=== PATIENT | female | born 1975 | race Caucasian/White ===

== ENCOUNTER 2019-12-11 08:52 | Outpatient (CLI) | payer BC, SELFPAY ==
--- NOTE | 2019-12-11 | US_ITS ---
WS: [id number] TRANSABDOMINAL PELVIC AND TRANSVAGINAL PELVIC ULTRASOUND HISTORY: HEMORRHAGIA, ENLARGED UTERUS COMPARISON: None available. Uterus: 10.0 cm x 9.4 cm x 6.3 cm. Uterus is moderately enlarged and anteverted. Mild heterogeneity i n the myometrium. In the anterior myometrium multiple fibroids are identified. Largest fibroid measur es 5.5 x 5.6 x 4.6 cm. This is partially exophytic from the anterior myometrium. Endometrium: 1.0 cm. Normal homogeneity. Right ovary: Not visualized. No adnexal mass seen. Left ovary: 3.3 cm x 2.7 cm x 2.5 cm. LEFT ovarian cyst contains and daughter cyst. No free fluid. US/US pelvic with transvaginal IMPRESSION: 1. Moderately enlarged uterus. 2. Several fibroids along the anterior myometrium with the largest partially e xophytic measuring 5.5 x 5.6 x 4.6 cm. 3. RIGHT ovary is not identified.
== END 2019-12-11 08:53 | disposition home or self-care (01) ==
LOC: RAD 08:59
PROVIDERS: PCP Nurse Practitioner Women's Health; Visit Provider Nurse Practitioner Women's Health
DX: N85.2 Hypertrophy of uterus (principal); R58 Hemorrhage, not elsewhere classified; D25.9 Leiomyoma of uterus, unspecified
CPT/HCPCS: 76830; 76856

== ENCOUNTER → 2019-12-25 09:30 | Outpatient (BNVA) | payer BC, SELFPAY | PROVIDERS: PCP Nurse Practitioner Women's Health; Visit Provider Obstetrics & Gynecology | DX: N93.9 Abnormal uterine and vaginal bleeding, unspecified (principal) | CPT/HCPCS: 84146; 84443; 85025 ==

== ENCOUNTER → 2020-01-07 12:04 | Outpatient (BNVA) | payer BC, SELFPAY | PROVIDERS: PCP Nurse Practitioner Women's Health; Visit Provider Obstetrics & Gynecology | DX: N93.9 Abnormal uterine and vaginal bleeding, unspecified (principal) | CPT/HCPCS: 81025 ==

== ENCOUNTER 2020-01-30 10:21 | Observation (INO) | payer BC, SELFPAY ==
[2020-01-29 11:07] VITALS: BMI 27.4
[2020-01-30] VITALS (21 sets, daily range): BP systolic 98–132; BP diastolic 61–91; PULSE 65–91; RESP 16–21; TEMP 36.6–37.1; O2SAT 68–100
--- NOTE | 2020-01-30 06:31 | ANES.PREANE2 ---
Pre-Anesthetic Assessment Pre-Anesthetic Assessment: Height/Weight: Height 1.63 m Weight 72.575 kg Temp Pulse Resp BP Pulse Ox 98.1 F 89 18 128/91 100 01/30/20 06:06 01/30/20 06:06 01/30/20 06:06 01/30/20 06:06 01/30/20 06:06 Preop Diagnosis: Abnormal uterine bleeding, fibroid uterus Proposed Procedure: Operation Date: 01/30/20 07:00 Proposed Procedures p Laparoscopic Assist Vaginal Hystectomy LAVH/possible total abd hysterectomy/bilat salpingectomy possible oophorectomy 52482 12045 D25.9 N93.9(Not Applicable) - Jena Basurto MD Familial anesthetic complications: PONV Was Beta [place] taken within 24 hours: N/A Last intake: Intake Last Liquid Date 01/29/20 Last Liquid Time 23:00 Last Solid Date 02/05/20 Last Solid Time 19:30 Social: Social History: Alcohol and No tobacco Comment: glass of wine a day Exam: Pre-Anes Outpt Exam: alert, oriented x 3, clear to auscultation bilaterally and regular rate & rhythm Airway: Cervical ROM: WNL MP: 1 Dentition: Full Pulmonary: Pulmonary: None reported CV/HEM: CV/HEM: None reported : : None reported Hepatic: Hepatic: None reported GI: GI: None reported Metabolic: Metabolic: None reported Musc/skel: Musc/skel: Lower Back Pain Comments: hip reconstructions Neuropsych: Neuropsych: None reported Anesthetic Plan: ASA status: 1 Anesthesia: General Risk of > 500 ml blood loss (7ml/kg in children): No PFSH Anesthesia PFSH: Medical History No pertinent past medical history Patient denies history of: hypertension, hypercholesterolemia, diabetes, asthma, lung, liver, kindey or heart or thyroid disorders, DVT/PE, bleeding or clotting disorders. PCP: None Surgical History S/P appendectomy Laparoscopic procedure in 2013 in [place] S/P shoulder surgery Arthroscopic left shoulder surgery for torn tendon. 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 Status post laparoscopy Diagnostic laparoscopy performed in 2003-patient states that uterus and ovaries were normal at that time. 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 Moved to [place] in [place] in June 2019. Data Anesthesia Cardiac Studies: No Data to Display
[2020-01-30] MEDS: sodium chloride 0.9% 1,000 ML 30 ML IV (06:32)
[2020-01-30] MEDS: scopolamine 1.5 Patch 1 PATCH TRANSDERMA (06:34)
--- NOTE | 2020-01-30 06:56 | P.HPUD_ITS ---
Surgery/Procedure H&P Update DATE OF PROCEDURE: January 30, 2020 DATE H&P PERFORMED: 01/14/20 H&P UPDATE INFORMATION: I have reviewed H&P completed within last 30 days, I have examined patient prior to procedure, No changes to prior documentation and H&P is in [facility] on date indicated PREOP DIAGNOSIS: Abnormal uterine bleeding, fibroid uterus PRIMARY INDICATION FOR PROCEDURE: fibroids, AUB PLANNED PROCEDURE: Operation Date: 01/30/20 07:00 Proposed Procedures p Laparoscopic Assist Vaginal Hystectomy LAVH/possible total abd hy sterectomy/bilat salpingectomy possible oophorectomy [id number] D25.9 N93.9(Not Applicable) - Jena Basurto MD
[2020-01-30 07:02] LABS: OR HCG Qualitative Urine Negative (Negative)
[2020-01-30] MEDS: vasopressin 20 unit/mL INJ INJECTION (08:30)
--- NOTE | 2020-01-30 10:30 | PM.OP ---
Operative Report Date of procedure: January 30, 2020 OPERATIVE REPORT Date of surgery: 01/30/2020 Date of dictation: 01/30/2020 Preoperative diagnosis: 45-year-old 2 para 2 with fibroid uterus; pelvic pain; abnormal uterine bleeding Postoperative diagnosis/findings: 10-week size anteverted uterus, mobile, on laparoscopy no intra-abdominal lesions, normal tubes and ovaries bilaterally, enlarged fibroid uterus-single 5 to 7 cm fibroid in the anterior and left side. On cystoscopy no lesions suture or defects identified, bilateral ureteral jets x3 noted. Procedure done: Laparoscopic assisted vaginal hysterectomy, bilateral salpingectomy, cystoscopy Specimens removed/disposition of specimens: Fibroid uterus, bilateral fallopian tubes with the right tube tagged. Surgeon: Dr. Jena Jackson resident programs assistant: Sofia Hooker Anesthesia: General endotracheal tube anesthesia Estimated blood loss: 200 ml Intravenous fluids: 1500 mL of LR Urine output: 300 mL of blue-tinged urine at the end of procedure. Medications: As per anesthesia records Complications: None, patient was extubated and brought to the recovery room in stable condition. PROCEDURE: After consents were obtained, she was taken to the operating room where she was placed under general endotracheal tube anesthesia without any difficulty. She was placed supine on the table in lithotomy position. Her legs were placed in stirrups and care was taken to avoid pressure points. Exam under anesthesia revealed findings revealed above. She was then prepped and draped in usual sterile fashion. Weighted speculum and anterior wall retractors were placed in the vagina, cervix visualized and grasped with a tenaculum. ZUMI uterine manipulator was placed into the uterus without any difficulty. Samuels Catheter was placed, instruments were removed from the vagina and the legs were lowered. Attention was turned towards the abdomen where half percent Marcaine with epinephrine was injected in to her umbilicus. A 10 mm skin incision was made and a 10 mm port was placed through the umbilicus using an open technique. The fascia was visualized tented and entered sharply. Peritoneum was entered bluntly. No adhesions were noted around incision. Amor trocar was placed and attached to the fascia. Once intra-abdominal entry was confirmed gas was turned on and intra-abdominal opening pressure was 2. The abdomen is insufflated until the pressure was 13. Survey of the abdomen findings noted above. No other gross abnormality were identified. Two 5 mm trocar was placed into the right and left lower quadrant under direct visualization after injecting Marcaine. A 5 mm Voyant was introduced into the abdomen and the left ovarian ligament was clamped, cauterized x3 and then cut. No bleeding was noted. The LigaSure was used clamp cauterize and then cut the broad ligament under the fallopian tube and proceeding inferiorly just lateral to the uterus. The round ligament was also clamped, cauterized and cut. In this way the left fallopian tube, ovary and left side of the uterus was from the parametria. This was done with the assistance of the laparoscopic tenaculum to hold the fibroid. This was continued to the level just above the cervix. The same procedure was repeated on the right side and using the LigaSure -the right ovarian ligament, fallopian tube and round ligament were grasped, cauterized and cut. Good hemostasis was noted.The right-side of the uterus was thus freed from the parametria in a similar fashion. The ureters were visualized bilaterally well away from site of surgery. Next the anterior bladder flap was created and the bladder was pushed down. The uterine artery on both sides were visualized, clamped and cauterized. Survey of surgery sites showed hemostasis bilaterally. At this point all instruments were taken out of the abdomen, gas was turned off, abdomen was covered with a sterile drape and attention was turned towards the vagina. Patient's legs were raised, weighted speculum placed and cervix was grasped on the anterior and posterior lips with single-toothed tenaculum. 4 Units of Pitressin diluted in 10 mL of saline was injected around the cervix for hydrodissection on all sides. A scalpel was used to make an incision starting posteriorly and then extending anteriorly around the cervix. Santo scissors was then used to separate the overlying tissue from the cervix. The overlying tissue was also pushed back bluntly using a 4 x 4 gauze. Attention was turned posteriorly where pickups with teeth and Metzenbaum scissors was used to grasp the peritoneum and peritoneal cavity was entered. This peritoneal incision was extended laterally using the Metzenbaum scissors. A long weighted speculum was placed intraperitoneally thus protecting the rectum. [place] clamps were used first on the right and then the left to clamp and then cut the paracervical tissue. Then we clamped, cut and sutured both right and left uterosacral ligaments with a Raissa clamp. This process was repeated again proceeding up the cervix. The bladder was held up, peritoneum was identified and intraperitoneal entry anteriorly was made. A vaginal retractor was placed into the peritoneum thus protecting the bladder from site of surgery. Care was taken to stay medial and to avoid the bladder. The next bite that was placed clamped and then cut the already cauterized uterine artery on the right and then on the left side. These pedicles were were tied and the stitches were cut. Good hemostasis was achieved. With this, the uterus, bilateral tubes was freed, taken out and sent to pathology. The pedicles in the pelvis was visualized and good hemostasis was noted. The posterior vaginal cuff was noted to be bleeding and was oversewn , attaching the peritoneum to the vaginal cuff with 0 Vicryl in a continuous interlocking fashion. Good hemostasis was achieved. Cystoscopy was performed with a 70? cystoscope and bilateral ureteral jets were visualized x 3 as well as no suture , lesion or defect was noted in the bladder wall or urethra. Cystoscope was removed, bladder drained and Samuels catheter was replaced. The angles of the vaginal cuff were grasped with Allis clamps and the angles were held in place. 0 Vicryl was used to close the vaginal cuff in a horizontal fashion using interrupted [id number] sutures. The vaginal cuff was closed and no defects were noted attention was turned to the Vicryl sutures holding the uterosacral ligaments. The sutures were right and left uterosacral ligaments were tied together thus suspending the apex of the vagina. Good support was noted. Attention was turned towards the abdomen at this time and patient's legs were lowered. Abdomen was insufflated to a pressure of 13 and the camera was placed in the abdomen. Sites of surgery were visualized and were noted to be hemostatic. The vaginal cuff was intact and no bowel or omentum was noted to be involved with the vaginal cuff suture line. Surgicel was placed over the vaginal cuff. Good hemostasis was noted. All instruments removed from the abdomen and the abdomen was desufflated. Trochars were removed with the blunt probe in place. The fascia on the umbilicus was closed with 0 Vicryl on a UR needle and good approximation was obtained. The skin incision on all 3 ports was closed with 4-0 Monocryl in a subcuticular fashion. Good reapproximation and hemostasis was noted. Marcaine was injected on the port sites. The incisions were dressed with Steri-Strips, Telfa and Tegaderm. 1 inch vaginal packing with lubrication was placed into the vagina. A Samuels catheter was kept in place. The patient was extubated without any difficulty and taken to the recovery room in a stable condition. Pre-op Diagnosis: Abnormal uterine bleeding, fibroid uterus
[2020-01-30] MEDS: meperidine 50 mg/mL INJ 12.5 MG IVP ×2 (10:37→10:42)
[2020-01-30] MEDS: HYDROcodone-acetaminophen 5-325 mg Tablet PO (11:47)
[2020-01-30] MEDS: dextrose 5%-lactated ringers 1,000 ML 125 ML IV ×2 (13:01→21:43)
[2020-01-30] MEDS: ketorolac 30 mg/mL INJ 15 MG IVP (14:37)
--- NOTE | 2020-01-30 15:43 | PC.NURSE ---
Patient assisted to the chair. Patient stated she felt dizzy for a second while scooting across the bed to dangle her legs off the bed, but stated it resolved quickly. Patient denied feeling any dizziness once standing at bedside with assistance. Patient ambulated to the chair without any weakness, lightheadedness, or further dizziness.
--- NOTE | 2020-01-31 00:46 | PC.NURSE ---
vaginal packing was removed at this time. Pt. tolerated procedure well.
[2020-01-31] MEDS: HYDROcodone-acetaminophen 5-325 mg Tablet PO ×3 (01:13→12:16)
[2020-01-31 05:24] LABS: Hematocrit 32.9 % (37.0-47.0); Hemoglobin 10.7 g/dL (11.5-15.3); Mean Corpuscular HGB Conc 32.5 g/dL (30.0-36.0); Mean Corpuscular Hemoglobin 31.8 pg (28.0-34.0); Mean Corpuscular Volume 97.9 fL (81-99); Mean Platelet Volume 10.1 fL (7.4-10.4); Platelet Count 166 10^3/cmm (130-400); Red Blood Count 3.36 10^6/uL (4.1-5.3); Red Cell Distribution Width 12.8 % (12.1-15.1); White Blood Count 11.1 10^3/uL (4.0-10.0)
[2020-01-31 06:00] VITALS: BP 115/70; PULSE 71; RESP 16; TEMP 36.8; O2SAT 95
[2020-01-31] MEDS: dextrose 5%-lactated ringers 1,000 ML 125 ML IV (06:05)
[2020-01-31] MEDS: docusate sodium 100 mg Capsule PO (09:05)
[2020-01-31 09:08] VITALS: BP 107/62; PULSE 70; RESP 18; TEMP 37; O2SAT 99
--- NOTE | 2020-01-31 09:59 | PM.DCS ---
Discharge Providers Date of Admission: 01/30/20 10:21 Date of Discharge: January 31, 2020 Attending Provider at Admission: Jena Basurto MD Attending Provider at Discharge: Jena Basurto MD Primary Care Provider: Thania Denson NP Reason for Visit Reason for Visit: Uterine fibroids Abnormal uterine bleeding Hospital Course Discharge Summary: Preoperative diagnosis: 45-year-old 2 para 2 with fibroid uterus; pelvic pain; abnormal uterine bleeding Postoperative diagnosis/findings: 10-week size anteverted uterus, mobile, on laparoscopy no intra-abdominal lesions, normal tubes and ovaries bilaterally, enlarged fibroid uterus-single 5 to 7 cm fibroid in the anterior and left side. On cystoscopy no lesions suture or defects identified, bilateral ureteral jets x3 noted. Procedure done: Laparoscopic assisted vaginal hysterectomy, bilateral salpingectomy, cystoscopy Specimens removed/disposition of specimens: Fibroid uterus, bilateral fallopian tubes with the right tube tagged. Surgeon: Dr. Jena Jackson [facility] COURSE: She underwent an uncomplicated LAVH, bilateral salpingectomy on 01/30/2020. She did well on postoperative day 0 and was ambulating well, tolerating clear liquid diet. Pain was well-controlled with by mouth and IV pain medication. She denied nausea, vomiting, fever, chills, shortness of breath, leg pain. She had minimal vaginal bleeding. Samuels catheter was kept overnight and she had adequate urine output. On postoperative day #1 she continued to do well with stable vital signs and stable hemoglobin at 10.7. Samuels catheter was removed and patient was able to void with minimal residual noted on bladder scan. She ambulated well started passing flatus and then tolerated a regular diet. She was discharged home on postoperative day #1 in a stable condition. Warning signs for wound infection, cuff infection, DVT/PE were reviewed with her. Post surgical activity restrictions were also reviewed with her at all her questions were answered to her satisfaction. EXAM AT DISCHARGE: Gen.: No acute distress Heart: S1-S2 heard, regular rate and rhythm Lungs: Clear to auscultation bilaterally Abdomen: Soft, nondistended, no rebound, no guarding, normoactive bowel sounds Incision: Clean dry and intact with Steri-Strips x3 Legs: No calf tenderness, no pedal edema. CONDITION AT DISCHARGE: Stable Physical Exam Urinary Catheter Management^: Samuels: Cath Placed During This Visit: yes, but has since been removed by the nurse Reason for Continuing Indwelling Catheter: Decision to DC Catheter Urinary Catheter Date of Insertion: 01/30/20 Urinary Catheter Time of Insertion: 07:38 Date Urinary Catheter Removed: 01/31/20 Time Urinary Catheter Discontinued: 03:00 Discharge Data Data Completed and Pending: Pending at discharge Category Date Time Status ES surgery / GI i mages Routine Exams 01/30/20 06:31 Taken Pathology: Surgic al [PTH] Routine Pth 01/30/20 10:08 Received Labs from last 24 hours 01/31/20 05:15 WBC 11.1 H RBC 3.36 L Hgb 10.7 L Hct 32.9 L MCV 97.9 MCH 31.8 MCHC 32.5 RDW 12.8 Plt Count 166 MPV 10.1 Vitals: Last Vital Signs Temp 98.6 F 01/31/20 09:08 Pulse 70 01/31/20 09:08 Resp 18 01/31/20 09:08 BP 107/62 01/31/20 09:08 Pulse Ox 99 01/31/20 09:08 Discharge Plan Discharge Patient Disposition: Home, Self-Care Condition: Stable Prescriptions: New hydrocodone-acetaminophen 5-325 mg tablet 1 tab PO Q6H Qty: 30 RF: 0 ibuprofen 800 mg tablet 800 mg PO Q8H Qty: 30 RF: 0 docusate sodium 100 mg Capsule 100 mg PO BID PRN (Reason: constipation) Qty: 30 RF: 0 Continued up4 Probiotics Adult 15 billion cell capsule 4 cap PO DAILY RF: 0 cholecalciferol (vitamin D3) 50 mcg (2,000 unit) capsule 50 mcg PO DAILY RF: 0 omega-3 acid ethyl esters 1 gram capsule 1 cap PO DAILY RF: 0 Discontinued ibuprofen 800 mg tablet 800 mg PO BID RF: 0 Discharge Orders: Discharge Order (Routine); Ordered 01/31/20 Ordered By: Jena Basurto Referrals: Jena Basurto MD [Physician] - (2-week and 6-week visit with Dr. Jackson) Activity Restrictions/Additional Instructions: Pelvic rest for 6 weeks, no heavy lifting for 6 weeks Discharge Attestations Time Spent in Discharge Care*: greater than 30 min Quality Metrics Clinical Quality Measures During this hospital stay, did patient experience: None Coding Level of Care Code Acute Web Content Coordinator for Chg Fwd
--- NOTE | 2020-01-31 10:38 | ANE.PACU2 ---
Inpatient post-anesthesia follow up: Airway intact: Yes Vital signs: Temperature 98.6 F Pulse Rate 70 Respiratory Rate 18 Blood Pressure 107/62 Pulse Oximetry 99 Oxygen Delivery Me thod Room Air Oxygen Flow Rate 8 Fraction of Inspir ed Oxygen Hydration adequate: Yes Nausea and vomiting: Yes Pain level: 2 Mental status: Baseline
[2020-01-31 14:00] VITALS: BP 96/61; PULSE 71; RESP 18; TEMP 36.8; O2SAT 98
== END 2020-01-31 14:20 | disposition home or self-care (01) ==
LOC: OBGYN 10:21
PROVIDERS: Admitting Provider Obstetrics & Gynecology; PCP Nurse Practitioner Women's Health; Visit Provider Obstetrics & Gynecology
PROC: 0UT9FZZ Resection of Uterus, Via Natural or Artificial Opening With Percutaneous Endoscopic Assistance (ICD-10-PCS; CPT 58554; principal; 2020-01-30 07:00)
PROC: 0TJB8ZZ Inspection of Bladder, Via Natural or Artificial Opening Endoscopic (ICD-10-PCS; CPT 52000; 2020-01-30 07:00)
DX: D25.9 Leiomyoma of uterus, unspecified (principal); R10.2 Pelvic and perineal pain; N93.9 Abnormal uterine and vaginal bleeding, unspecified
CPT/HCPCS: 58554; 12345; 36415; 81025; 84703; 85027; 86850; 86900; 88307; 96360; 96361; 96375; G0378; J0131; J0690; J1100; J1885; J2175; J2405; J2704; J3010; J3490; J7030

== ENCOUNTER 2021-06-24 09:34 | Outpatient (CLI) | payer BC, SELFPAY ==
[2021-06-24 10:30] LABS: Cholesterol 241 mg/dL (0-200); HDL Cholesterol 67 mg/dL (60-100); LDL Cholesterol Calculated 160 mg/dL (50-129); LDL HDL Ratio 2.39 RATIO (0.00-3.22); Triglycerides 71 mg/dL (0-150)
[2021-06-24 10:39] LABS: Estmated Average Glucose 91; Hemoglobin A1C 4.8 % (4.0-6.0)
--- NOTE | 2021-06-24 11:00 | MM_ITS ---
WS: [id number] BILATERAL DIGITAL SCREENING MAMMOGRAPHY WITH CAD CLINICAL INFORMATION: Z12.39 - Encounter for other screening for malignant neop... HISTORY: Screening mammogram. No current complaints. COMPARISON: June 18, 2019 TECHNIQUE: Bilateral CC and MLO views. FINDINGS: Scattered fibroglandular densities bilaterally. No suspicious focal mass, asymmetry, calcifications, or architectural distortion. No evidence of malignancy. MM/[place] [id number] IMPRESSION: BI-RADS: 1-Negative FOLLOW UP: 1 Year Follow-up Recommend return to annual screening mammography.
== END 2021-06-24 09:35 | disposition home or self-care (01) ==
PROVIDERS: Visit Provider Obstetrics & Gynecology
DX: Z12.31 Encounter for screening mammogram for malignant neoplasm of breast (principal); Z00.00 Encounter for general adult medical examination without abnormal findings
CPT/HCPCS: 36415; 77067; 80061; 83036

== ENCOUNTER → 2022-06-13 13:55 | Outpatient (BNVA) | payer BC, SELFPAY | PROVIDERS: Visit Provider Obstetrics & Gynecology | DX: Z01.419 Encounter for gynecological examination (general) (routine) without abnormal findings (principal) | CPT/HCPCS: 83001; 83002; 84443 ==

== ENCOUNTER 2022-06-30 08:16 | Outpatient (CLI) | payer BC, SELFPAY ==
--- NOTE | 2022-06-30 08:24 | MM_ITS ---
WS: [id number] SCREENING DIGITAL BREAST TOMOSYNTHESIS MAMMOGRAM WITH CAD HISTORY: Screening COMPARISON: 06/24/2021, 06/18/2019 Bilateral CC and MLO with tomosynthesis and synthetic mammography submitted. Computer aided detection analyzed. Breast composition: There are scattered areas of fibroglandular density. Subtle asymmetry in the uppe r-outer quadrant of the RIGHT breast at middle depth. Slightly more prominent than on the prior study . Otherwise no change within either breast. MM/[place] [id number] IMPRESSION: BI-RADS: 0-Incomplete: Need additional imaging evaluation FOLLOW UP: Need Additional Imaging RIGHT breast: Spot compression views (CC and MLO). True ML. Ultrasound to follo w if abnormality persists.
== END 2022-06-30 08:17 | disposition home or self-care (01) ==
LOC: RAD 08:17
PROVIDERS: Visit Provider Obstetrics & Gynecology
DX: Z12.31 Encounter for screening mammogram for malignant neoplasm of breast (principal)
CPT/HCPCS: 77063; 77067

== ENCOUNTER 2022-07-27 10:48 | Outpatient (CLI) | payer BC, SELFPAY ==
--- NOTE | 2022-07-27 11:05 | MM_ITS ---
WS: [id number] DIAGNOSTIC RIGHT DIGITAL TOMOSYNTHESIS MAMMOGRAPHY WITH CAD. RIGHT breast ultrasound, limited HISTORY: ABNORMAL MAMMO COMPARISON: 06/30/2022, 06/24/2021 and 06/18/2019 Technique: CC, MLO and ML views. Spot compression RIGHT CC and MLO. Breast composition: There are scattered areas of fibroglandular density. Asymmetry nearly completely resolves in the upper outer quadrant of the RIGHT breast at a middle depth. There is still mild incr eased asymmetry which will be evaluated by ultrasound. RIGHT breast ultrasound, limited. Ultrasound directed to the upper outer quadrant of the RIGHT breast. No mass or distortion identifie d. Normal ultrasound. MM/[place] [id number] IMPRESSION: BI-RADS: 2-Benign FOLLOW UP: 1 Year Follow-up Return to annual screening mammography. No persistent abnormality.
== END 2022-07-27 10:49 | disposition home or self-care (01) ==
PROVIDERS: Visit Provider Obstetrics & Gynecology
DX: R92.8 Other abnormal and inconclusive findings on diagnostic imaging of breast (principal)
CPT/HCPCS: 76642; 77061; G0279